=== PATIENT | male | born 1995 | race Asian ===

== ENCOUNTER 2020-09-20 07:44 | Emergency (ER) | payer OTHER ==
[~2020-09-20] VITALS: Ht 180.3 cm; Wt 74.4 kg
[2020-09-20 07:56] VITALS: Ht 180.3 cm; Wt 74.4 kg
[2020-09-20] MEDS ORDERED: CYCLOBENZAPRINE5 MG PO (10:00)
[2020-09-20] MEDS ORDERED: LIDODERM51 TOP (10:00)
[2020-09-20] MEDS ORDERED: MOT600 PO (10:00)
[2020-09-20 10:10] VITALS: BP 109/80
== END 2020-09-20 10:10 | disposition home or self-care (01) ==
LOC: ED 07:44
DX: M25.511 Pain in right shoulder (principal); M25.512 Pain in left shoulder; Z88.0 Allergy status to penicillin
CPT/HCPCS: J1885